=== PATIENT | male | born 1960 ===

== ENCOUNTER 2017-04-06 06:15 | Inpatient (IN) | payer OTHER ==
[~2017-04-06] VITALS: Ht 190.5 cm; Wt 111.1 kg
[~2017-04-06 06:15] MED LIST: ASPIRIN81 MG PO; COZAAR50 MG PO; PROTONIX40 M2 PO; TUMS500 MG PO; VITAMIN D400 UNI1 PO
[2017-04-06 07:58] VITALS: BP 204/109
== END 2017-04-06 07:43 | DRG 554 ==
LOC: MS2 06:15
PROVIDERS: ADMIT Orthopaedic Surgery; ATTEND Orthopaedic Surgery
DX: M16.12 Unilateral primary osteoarthritis, left hip (principal); I10 Essential (primary) hypertension; M10.9 Gout, unspecified; Z53.09 Procedure and treatment not carried out because of other contraindication